=== PATIENT | female | born 1975 | race Caucasian/White ===

== ENCOUNTER 2017-02-19 15:04 | Emergency (ER) | payer BC ==
[~2017-02-19] VITALS: Ht 160 cm; Wt 92.8 kg
[~2017-02-19 15:04] MED LIST: NOHOMEMEDS
[2017-02-19 15:32] LABS: HEMATOCRIT 42.6 % (36.0-46.0); MCH 30.3 PG (29.0-34.0); MCHC 33.1 G/DL (30.0-36.0); MCV 91.6 FL (83-99); MEAN PLAT.VOLUME 9.3 uM^3 (9.5-12.4); PLATELET COUNT 329 K/uL (156-360); RBC DIS.WIDTH-CV 14.1 % (11.8-14.6); RBC DIS.WIDTH-SD 47.9 % (39-53); RED BLOOD COUNT 4.65 M/uL (3.80-5.20); WHITE BLOOD COUNT 9.6 K/uL (4.1-10.2)
[2017-02-19 15:32] LABS: ADD MIUA? YES; BILIRUBIN NEGATIVE; BLOOD SMALL; COLOR YELLOW ((YELLOW)); GLUCOSE (STRIP) NEGATIVE; KETONES NEGATIVE; LEUKOCYTES TRACE; NITRITE NEGATIVE; PROTEIN (STRIP) NEGATIVE; SPECIFIC GRAVITY 1.008 (1.000-1.030); UROBILINOGEN 0.2 MG/DL (0.2-1.0)
[2017-02-19 15:47] LABS: BACTERIA 2+ /HPF; EPITHELIAL CELLS 1+ /HPF; MUCUS TRACE /LPF; RED BLOOD CELLS 0-5 /HPF (0-5); UCUL ADDED? NO; WHITE BLOOD CELLS 0-5 /HPF (0-5)
[2017-02-19 15:49] LABS: CHLORIDE 105 mEq/L (99-109); POTASSIUM 4.5 mEq/L (3.7-5.4); SODIUM 140 mEq/L (136-147)
[2017-02-19 15:51] LABS: GLUCOSE 95 mg/dL (70-99)
[2017-02-19 15:52] LABS: ANION GAP 9 MEQ/L (2-14)
[2017-02-19 15:53] LABS: TOTAL BILIRUBIN 0.4 mg/dL (0.0-1.0)
[2017-02-19 15:54] LABS: ALKALINE PHOSPHATASE 82 IU/L (3-129)
[2017-02-19 15:55] LABS: GFR ESTIMATE (CALCULATED) > 59 mL/min/
[2017-02-19 15:56] LABS: UREA NITROGEN (BUN) 14 mg/dL (9-23)
[2017-02-19 15:58] LABS: LIPASE 31 U/L (1.0-51.0)
[2017-02-19 16:06] LABS: QUANTITATIVE HCG < 4.0 MIU/ML
[2017-02-19] MEDS ORDERED: NORCO 5/3251 TABLET PO (19:58)
[2017-02-19] MEDS ORDERED: ZOFRAN ODT4 MG PO (19:58)
[2017-02-19 20:17] VITALS: BP 125/75
[2017-03-02] MEDS ORDERED: HYDROCHLOROTHIA25 MG PO (14:54)
[2017-03-02] MEDS ORDERED: ESCITALOPRAM OX20 MG PO (14:54)
== END 2017-02-19 20:18 | disposition home or self-care (01) ==
LOC: EME 15:04 → RME 18:10
DX: K80.70 Calculus of gallbladder and bile duct without cholecystitis without obstruction (principal); Z97.5 Presence of (intrauterine) contraceptive device; Z88.1 Allergy status to other antibiotic agents
CPT/HCPCS: 74177; 80053; 81003; 83690; 84702; 85027; 93005; 99281; 99284; J1200; J1885; J7040

== ENCOUNTER 2017-03-04 08:23 | Day surgery (SDC) | payer BC ==
[~2017-03-04] VITALS: Ht 162.6 cm; Wt 92.5 kg
[~2017-03-04 08:23] MED LIST changes: +ESCITALOPRAM OX20 MG PO; +HYDROCHLOROTHIA25 MG PO; +NORCO 5/3251 TABLET PO; +ZOFRAN ODT4 MG PO
[2017-03-04 09:00] VITALS: BP 120/74
[2017-03-04] MEDS ORDERED: NORCO 5/3251 TABLET PO (11:18)
[2017-03-04 11:35] LABS: INTERNAL CONTROL VALID? YES
[2017-03-04 13:33] VITALS: BP 120/62
[2017-03-04 14:18] VITALS: BP 140/72
== END 2017-03-04 14:45 | disposition home or self-care (01) ==
LOC: SDC 08:23
PROVIDERS: Surgery
PROC: 0FT44ZZ Resection of Gallbladder, Percutaneous Endoscopic Approach (ICD-10-PCS; principal; 2017-03-04)
DX: K80.10 Calculus of gallbladder with chronic cholecystitis without obstruction (principal); I10 Essential (primary) hypertension; F41.9 Anxiety disorder, unspecified; E66.9 Obesity, unspecified; Z88.0 Allergy status to penicillin; Z88.2 Allergy status to sulfonamides; Z82.49 Family history of ischemic heart disease and other diseases of the circulatory system; Z80.6 Family history of leukemia
CPT/HCPCS: 84703; 88304; 94640; J0690; J1100; J1170; J1885; J2250; J2405; J2710; J2765; J3010

== ENCOUNTER 2017-03-06 11:32 | Emergency (ER) | payer BC ==
[~2017-03-06] VITALS: Ht 160 cm; Wt 96.0 kg
[2017-03-06 12:24] LABS: EOSINOPHIL (%) 1.1 % (0-5); EOSINOPHIL COUNT 0.1 K/uL (0-0.3); IMMATURE GRANULOCYTE (%) 0.6 % (0.0-0.7); IMMATURE GRANULOCYTE COUNT 0.1 K/uL; INSTRUMENT ABS NEUTROPHIL CT 7.4 K/uL; LYMPHOCYTE COUNT 1.8 K/uL (1.0-2.8); MCH 30.1 PG (29.0-34.0); MCHC 32.4 G/DL (30.0-36.0); MCV 93.1 FL (83-99); MEAN PLAT.VOLUME 8.9 uM^3 (9.5-12.4); MONOCYTE (%) 6.2 % (3-12); MONOCYTE COUNT 0.6 K/uL (0-0.8); NEUTROPHIL (%) 73.6 % (45-76); NEUTROPHIL COUNT 7.4 K/uL (1.8-6.4); PLATELET COUNT 300 K/uL (156-360); RBC DIS.WIDTH-CV 14.5 % (11.8-14.6); RED BLOOD COUNT 4.08 M/uL (3.80-5.20)
[2017-03-06 12:32] LABS: PROTHROMBIN TIME 10.5 SEC (10.2-12.9)
[2017-03-06 12:38] LABS: CHLORIDE 105 mEq/L (99-109); POTASSIUM 3.5 mEq/L (3.7-5.4); SODIUM 143 mEq/L (136-147)
[2017-03-06 12:41] LABS: GLUCOSE 108 mg/dL (70-99)
[2017-03-06 12:42] LABS: ANION GAP 14 MEQ/L (2-14)
[2017-03-06 12:43] LABS: TOTAL BILIRUBIN 0.8 mg/dL (0.0-1.0)
[2017-03-06 12:44] LABS: ALKALINE PHOSPHATASE 88 IU/L (3-129)
[2017-03-06 12:45] LABS: GFR ESTIMATE (CALCULATED) > 59 mL/min/
[2017-03-06 12:46] LABS: DIRECT BILIRUBIN 0.4 mg/dL (0.0-0.3); TROP-I INTERPRETATION NEGATIVE; TROPONIN-I < 0.01 ng/mL (0.0-0.30); UREA NITROGEN (BUN) 15 mg/dL (9-23)
[2017-03-06 12:48] LABS: LIPASE 6 U/L (1.0-51.0)
[2017-03-06 13:53] LABS: ADD MIUA? YES; BILIRUBIN NEGATIVE; BLOOD NEGATIVE; COLOR AMBER ((YELLOW)); GLUCOSE (STRIP) NEGATIVE; KETONES NEGATIVE; LEUKOCYTES TRACE; NITRITE NEGATIVE; PROTEIN (STRIP) NEGATIVE; SPECIFIC GRAVITY 1.024 (1.000-1.030)
[2017-03-06 14:15] LABS: BACTERIA 1+ /HPF; CASTS NONE SEEN /LPF; CRYSTALS NONE SEEN; EPITHELIAL CELLS 1+ /HPF; MUCUS RARE /LPF; RED BLOOD CELLS NONE SEEN /HPF (0-5); UCUL ADDED? NO; WHITE BLOOD CELLS 0-5 /HPF (0-5)
[2017-03-06] MEDS ORDERED: MAALOX MAXIMUM355 ML PO (14:28)
[2017-03-06 14:38] VITALS: BP 147/76
== END 2017-03-06 14:39 | disposition home or self-care (01) ==
LOC: EME 11:32
PROVIDERS: Emergency Medicine
DX: K91.89 Other postprocedural complications and disorders of digestive system (principal); R10.11 Right upper quadrant pain; R11.0 Nausea; R06.02 Shortness of breath; R16.0 Hepatomegaly, not elsewhere classified; Z90.49 Acquired absence of other specified parts of digestive tract; Z98.890 Other specified postprocedural states; I10 Essential (primary) hypertension
CPT/HCPCS: 71020; 76705; 80048; 80076; 81003; 83690; 84484; 85025; 85610; 99281; 99284; J2270

== ENCOUNTER → 2017-04-15 | Outpatient (CLI) | payer BC ==
[~2017-04-15] VITALS: Ht 162.6 cm; Wt 94.1 kg
[~2017-04-15] MED LIST changes: +DYAZIDE, MA1 CAPSULE PO; +MAALOX MAXIMUM355 ML PO
== END | disposition home or self-care (01) ==
LOC: AMB 08:00
PROC: 0DB68ZX Excision of Stomach, Via Natural or Artificial Opening Endoscopic, Diagnostic (ICD-10-PCS; principal; 2017-04-15)
DX: K20.9 Esophagitis, unspecified (principal); K44.9 Diaphragmatic hernia without obstruction or gangrene; R14.0 Abdominal distension (gaseous); I10 Essential (primary) hypertension; E66.9 Obesity, unspecified; Z90.49 Acquired absence of other specified parts of digestive tract; E78.5 Hyperlipidemia, unspecified; Z20.5 Contact with and (suspected) exposure to viral hepatitis; Z88.0 Allergy status to penicillin
CPT/HCPCS: 88305; 88342 TC; J2250